=== PATIENT | male | born 1940 | race Caucasian/White ===

== ENCOUNTER 2022-03-15 17:39 | Inpatient (IN) | payer MEDICARE ==
[~2022-03-15] VITALS: Ht 152.4 cm; Wt 57.2 kg
[2022-03-15 11:00] VITALS: BP 151/80
--- NOTE | 2022-03-15 18:00 | NUR ---
RECEVED PT 81 YRS MALE FROM REHAB BY CLAUDIA MORA
--- NOTE | 2022-03-15 18:25 | NUR ---
SEEN BY DR. FORTUNE
[2022-03-15] MEDS ORDERED: ASPIRIN 325 MG TABLET PO ONE (18:30)
--- NOTE | 2022-03-15 18:35 | NUR ---
INSERTEDD ANGO CATHETER G 20 ON LT WRIST BLOOD DROW AND SENT TO LAB
[2022-03-15] MEDS ORDERED: ASPIRIN 325 MG TABLET ONE (18:38)
--- NOTE | 2022-03-15 19:03 | NUR ---
MONSTER SIDHU SENT TO LAB
[2022-03-15 19:06] LABS: BASOPHILS % (AUTO) 0.2 % (0.0-2.0); HEMATOCRIT 40 % (39-51); HEMOGLOBIN 12.9 g/dL (13.5-17.5); LYMPHOCYTES # (AUTO) 1.3 K/uL (0.8-4.8); LYMPHOCYTES % (AUTO) 20.8 % (20.0-44.0); MEAN CORPUSCULAR HGB CONC 32 g/dl (31.0-36.0); MEAN CORPUSCULAR VOLUME 92 fL (80-96); MONOCYTES # (AUTO) 0.7 K/uL (0.1-1.30); MONOCYTES % (AUTO) 10.2 % (2.0-12.0); NEUTROPHILS # (AUTO) 4.1 K/uL (1.8-8.9); NEUTROPHILS % (AUTO) 63.8 % (43.0-81.0); PLATELET COUNT (AUTO) 155 K/uL (150-450); WHITE BLOOD COUNT (AUTO) 6.4 K/uL (4.3-11.0)
[2022-03-15 19:24] LABS: ALANINE AMINOTRANSFERASE < 6 U/L (12-78); ALBUMIN 3.5 g/dL (3.4-5.0); ALKALINE PHOSPHATASE 96 U/L (46-116); ASPARTATE AMINOTRANSFERASE 16 U/L (15-37); BILIRUBIN,DIRECT 0.1 mg/dL (0.0-0.2); BILIRUBIN,TOTAL 0.4 mg/dL (0.2-1.0); CALCIUM, SERUM 8.5 mg/dL (8.5-10.1); CARBON DIOXIDE 26 mmol/L (21-32); CHLORIDE 103 mmol/L (98-107); GLUCOSE 100 mg/dL (74-106); POTASSIUM 4.5 mmol/L (3.5-5.1); SODIUM SERUM 136 mmol/L (136-145); TOTAL PROTEIN, SERUM 7.1 g/dL (6.4-8.2); UREA NITROGEN, BLOOD 20 mg/dL (7-18)
--- NOTE | 2022-03-15 19:40 | NUR ---
HAND OFF MARY ANN BOWEN
[2022-03-15] MEDS ORDERED: NITROGLYCERIN 0.4 MG/TAB BOTTLE SL PRN (21:30)
[2022-03-15] MEDS ORDERED: DOCUSATE SODIUM 100 MG CAPSULE PO PRN (21:30)
[2022-03-15] MEDS ORDERED: ACETAMINOPHEN 325 MG TABLET PO PRN (21:30)
[2022-03-15] MEDS ORDERED: ONDANSETRON HCL/PF 4 MG/2 ML VIAL IVP PRN (21:30)
[2022-03-15] MEDS ORDERED: MORPHINE SULFATE INJ 2 MG/ML DISP.SYRIN IV PRN (21:30)
[2022-03-15] MEDS ORDERED: MAG HYDROX/AL HYDROX/SIMETH 30 ML UDC PO PRN (21:30)
--- NOTE | 2022-03-15 22:06 | NUR ---
ROOM 313-2
--- NOTE | 2022-03-15 22:18 | NUR ---
REPORT GIVEN TO 3W RN FOR GERBER
--- NOTE | 2022-03-15 22:56 | NUR ---
PT ADMITTED TO 3W 313 VIA ACLS PROTOCOL.
[2022-03-16 00:36] VITALS: BP 151/80
--- NOTE | 2022-03-16 00:46 | NUR ---
INTERNAL COMBUSTION ENGINEERCRITICAL CARE REGISTERED NURSE NOTE RECEIVED REPORT FROM ER-RN MARY ANN AND PATIENT WAS BROUGHT TO THE UNIT AT AROUND 2300 VIA GURNEY, ACCOMPANIED BY ER STAFF AND DIRECTED TO ROOM 313-2. PATIENT IS ALERT AND ORIENTED X3. AFEBRILE AND NOT IN ANY FORM OF ACUTE DISTRESS. ABLE TO MAKE NEEDS KNOWN. PATIENT WAS ADMITTED D/T C/O CHEST PAIN THAT STARTED THIS MORNING AND DESCRIBES IT SHARP, NON RADIATING PAIN. UPON ASSESSMENT, PATIENT DENIES ANY PAIN OR DISCOMFORT. ORIENTED TO NEW ENVIRONMENT. EXPLAINED ADMISSION PROCESS INCLUDING INITIAL SKIN ASSESSMENT AND AGREED TO IT. PATIENT WAS NOTED WITH REDNESS ON SACRAL AREA. IV ACCESS ON L FOREARM 50G WAS ALSO NOTED. VITALS TAKEN AND FOLLOWS: BP 151/810, P- 75, T- 98.0, O2 SAT ON RA 99%, R-20. BELONGINGS AND VALUABLES PROPERLY DOCUMENTED TOGETHER WITH ASSIGNED CUSTOMER LEADER. KEPT DRY AND COMFORTABLE. SAFETY MEASURES IN PLACE. KEPT BED IN LOCKED AND IN LOW POSITION. SIDE RAILS UP X2. BED ALARM ON. ADVISED TO USE THE CALL LIGHT WHEN IN NEED OF ASSISTANCE.
[2022-03-16 04:00] VITALS: BP 139/77
--- NOTE | 2022-03-16 06:30 | NUR ---
RRT CLOSING NOTE PATIENT IN BED, ASLEEP BUT EASY TO AROUSE AND RESPONSIVE. AFEBRILE AND NOT IN ANY FORM OF ACUTE DISTRESS. ABLE TO MAKE NEEDS KNOWN. BREATHING EVEN AND NON LABORED. NO C/O CHEST PAIN OR DISCOMFORT THROUGHOUT THE SHIFT. WITH IV ACCESS ON L FOREARM 20- SL. ON TELE MONITORING WITH CURRENT READING OF SINUS NURIA 57. KEPT DRY AND COMFORTABLE. SAFETY MEASURES IN PLACE. KEPT BED IN LOCKED AND IN LOW POSITION. SIDE RAILS UP X2. BED ALARM ON. ADVISED TO USE THE CALL LIGHT WHEN IN NEED OF ASSISTANCE. ALL NURSING NEEDS ATTENDED. ENDORSED TO INCOMING SHIFT FOR CONTINUITY OF CARE.
[2022-03-16 06:58] LABS: BASOPHILS % (AUTO) 0.4 % (0.0-2.0); HEMATOCRIT 38 % (39-51); HEMOGLOBIN 12.5 g/dL (13.5-17.5); LYMPHOCYTES # (AUTO) 1.4 K/uL (0.8-4.8); LYMPHOCYTES % (AUTO) 22.6 % (20.0-44.0); MEAN CORPUSCULAR HGB CONC 33 g/dl (31.0-36.0); MEAN CORPUSCULAR VOLUME 90 fL (80-96); MONOCYTES # (AUTO) 0.8 K/uL (0.1-1.30); MONOCYTES % (AUTO) 12.7 % (2.0-12.0); NEUTROPHILS # (AUTO) 3.7 K/uL (1.8-8.9); NEUTROPHILS % (AUTO) 58.3 % (43.0-81.0); PLATELET COUNT (AUTO) 162 K/uL (150-450); RED BLOOD CELL COUNT(AUTO) 4.24 MIL/uL (4.5-6.0); WHITE BLOOD COUNT (AUTO) 6.3 K/uL (4.3-11.0)
[2022-03-16 07:20] LABS: ALANINE AMINOTRANSFERASE 12 U/L (12-78); ALBUMIN 3.2 g/dL (3.4-5.0); ALKALINE PHOSPHATASE 85 U/L (46-116); ASPARTATE AMINOTRANSFERASE 14 U/L (15-37); BILIRUBIN,TOTAL 0.5 mg/dL (0.2-1.0); CALCIUM, SERUM 8.1 mg/dL (8.5-10.1); CARBON DIOXIDE 26 mmol/L (21-32); CHLORIDE 106 mmol/L (98-107); CREATININE 0.9 mg/dL (0.6-1.3); GLUCOSE 86 mg/dL (74-106); MAGNESIUM 2.1 mg/dL (1.8-2.4); PHOSPHORUS 3.1 mg/dL (2.5-4.9); POTASSIUM 3.9 mmol/L (3.5-5.1); SODIUM SERUM 140 mmol/L (136-145); TOTAL PROTEIN, SERUM 6.5 g/dL (6.4-8.2); UREA NITROGEN, BLOOD 16 mg/dL (7-18)
--- NOTE | 2022-03-16 07:28 | NUR ---
RADIAL ARM SAW OPERATOR OPENING NOTES RECEIVED PATIENT AWAKE IN BED IN NO ACUTE SIGNS OF DISTRESS. A/O X 3, ABLE TO MAKE NEEDS KNOWN, DENIES PAIN OR ANY DISCOMFORTS AT THIS TIME. ON ROOM AIR, TOLERATING WELL, BREATHING EVEN AND UNLABORED. TELE- MONITOR CURRENTLY SHOWS NSR, HR 61, NO C/O CARDIAC DISTRESS NOTED. IV ACCESS ON LFA G#20 INTACT, PATENT AND SL. SAFETY MEASURES IN PLACE: CALL LIGHT WITHIN REACH, SIDE RAILS UP X 2, BED LOCKED IN LOWEST POSITION, BED ALARM ON. WILL CONTINUE TO MONITOR PATIENT ACCORDINGLY.
[2022-03-16 07:42] LABS: THYROID STIMULATING HORMONE 2.904 uIU/mL (0.358-3.74)
[2022-03-16 08:00] VITALS: BP 140/67
[2022-03-16] MEDS ORDERED: TAMS-12 PO (08:09)
[2022-03-16] MEDS ORDERED: CARB1TAB21 PO (08:09)
[2022-03-16] MEDS ORDERED: FINA5TAB11 PO (08:09)
[2022-03-16] MEDS: ASPIRIN 81 MG TAB.CHEW PO SCH (09:06)
[2022-03-16] MEDS: ENOXAPARIN SODIUM 60 MG/0.6 ML DISP.SYRIN SQ SCH (09:07)
[2022-03-16] MEDS: FINASTERIDE (5 MG) 5 MG TABLET PO SCH (09:10)
--- NOTE | 2022-03-16 10:20 | NUR ---
[facility] NOTES: [id number]. PT ALERT/COHERENT. NO OBVIOUS DISTRESS NOTED. AGUILA PROCEDURE WELL. 1050 BACK TO ROOM VIA ACLS PROTOCOL. REPORT GIVEN TO JESSI DESAI/
[2022-03-16] MEDS ORDERED: METOPROLOL TARTRATE INJ 5 MG/5 ML AMPUL ONE (10:21)
[2022-03-16] MEDS: METOPROLOL TARTRATE INJ 5 MG/5 ML AMPUL IVP PRN ×2 (10:25→10:30)
[2022-03-16] MEDS ORDERED: IOHEXOL-350 100 ML VIAL IV ONE (10:34)
[2022-03-16] MEDS ORDERED: IV NS 0.9% 250 ML IV ONE (10:34)
[2022-03-16] MEDS ORDERED: NITROGLYCERIN 0.4 MG/TAB BOTTLE ONE (10:34)
[2022-03-16] MEDS ORDERED: CT SWABBABLE VALVE TRANS SET 1 EA INFUS.SET MC ONE (10:34)
[2022-03-16] MEDS ORDERED: IV NS 0.9% 500 ML IV PRN ×2 (11:00)
[2022-03-16 12:00] VITALS: BP 116/50
[2022-03-16] MEDS: CARBIDOPA/LEVODOPA 25/100 MG 1 UDTAB PO SCH (12:35)
--- NOTE | 2022-03-16 14:25 | NUR ---
RN NOTES INFORMED DR MURPHY OF [facility] RESULTS.
[2022-03-16 15:16] LABS: CHOLESTEROL 172 mg/dL (<200); HDL CHOLESTEROL 66 mg/dL (40-60); LDL 101 mg/dL (0-99); TRIGLYCERIDES 31 mg/dL (30-150)
[2022-03-16] MEDS: ATORVASTATIN 40 MG TABLET PO SCH (15:23)
--- NOTE | 2022-03-16 15:33 | NUR ---
RN NOTES PATIENT C/O DRY COUGH. DR GOULD MADE AWARE WITH ORDER TO GIVE GUAIFENESIN 300MG /15 ML PO EVERY 6HRS PRN.
[2022-03-16] MEDS: GUAIFENESIN 300 MG/15 ML UDC PO PRN (18:29)
--- NOTE | 2022-03-16 18:41 | NUR ---
CIRCULAR CLERK CLOSING NOTE PATIENT IN BED AWAKE, A/0X3, ABLE TO MAKE NEEDS KNOWN. BREATHING EVEN AND NON LABORED. NO C/O CHEST PAIN OR DISCOMFORT AT THIS TIME. WITH IV ACCESS ON L FOREARM 20- SL, AND R AC #22G. ON TELE MONITORING WITH CURRENT READING OF SINUS RHYTHYM 85 WITH PVC'S. KEPT DRY AND COMFORTABLE. SAFETY MEASURES IN PLACE. BED IN LOCKED AND LOWEST POSITION. SIDE RAILS UP X2. BED ALARM ON. ADVISED TO USE THE CALL LIGHT WHEN IN NEED OF ASSISTANCE. ALL NEEDS MET AT THIS TIME. WILL ENDORSE GERBER TO FIELD MECHANIC NURSE.
--- NOTE | 2022-03-16 19:40 | NUR ---
WOOD HANDLER OPENING NOTE RECEIVED PATIENT AWAKE AMBULATING IN ROOM. PT IS PLACED BED TO BED. NO ACUTE SIGNS OF DISTRESS. PT A/O X 3, ABLE TO MAKE NEEDS KNOWN. DENIES PAIN OR ANY DISCOMFORTS AT THIS TIME. ON ROOM AIR, TOLERATING RA WELL, WITH BREATHING EVEN AND UNLABORED. TELE- MONITOR CURRENTLY SHOWS NSR, HR 68, NO C/O CARDIAC DISTRESS. IV ACCESS TO LEFT FA G#20 INTACT, PATENT AND SL. SAFETY MEASURES IN PLACE: CALL LIGHT WITHIN REACH, SIDE RAILS UP X 2, BED LOCKED IN LOWEST POSITION, BED ALARM ON. WILL CONTINUE TO MONITOR PATIENT.
[2022-03-16 20:00] VITALS: BP_SYST 105; BP_SYST 153; BP_DIAS 77; BP_DIAS 79
--- NOTE | 2022-03-16 21:22 | NUR ---
SENIOR STAFF ACCOUNTANT NOTE PT REPORTS PAIN TO RIGHT ARM. [facility]
[2022-03-16] MEDS ORDERED: TAMSULOSIN 0.4 MG CAP.SR.24H PO SCH (22:00)
[2022-03-17] VITALS: BP 156/68
--- NOTE | 2022-03-17 00:16 | NUR ---
PHYSICAL OPTICS TEACHER NOTE PT C/O GENERALIZED PAIN. PAIN MED [facility]ORPHINE GIVEN TO PT.
[2022-03-17 04:00] VITALS: BP 143/63
--- NOTE | 2022-03-17 07:00 | NUR ---
CLOTHESPIN DRIER OPERATOR CLOSING NOTE PATIENT IN BED AWAKE, A/0X3, ABLE TO MAKE NEEDS KNOWN. BREATHING EVEN AND NON LABORED. NO C/O CHEST PAIN OR DISCOMFORT AT THIS TIME. WITH IV ACCESS ON L FOREARM 20- SL, AND R AC #22G. ON TELE MONITORING WITH CURRENT READING OF SINUS RHYTHM. SAFETY MEASURES IN PLACE. BED IN LOCKED AND LOWEST POSITION. SIDE RAILS UP X2. BED ALARM ON. CALL LIGHT WITHIN REACH. WILL ENDORSE TO AM SHIFT NURSE FOR GERBER.
--- NOTE | 2022-03-17 07:15 | NUR ---
IT SUPPORT CONSULTANT OPENING NOTE PATIENT AWAKE IN BED. NO ACUTE SIGNS OF DISTRESS. PT A/O X2-3, ABLE TO MAKE NEEDS KNOWN. DENIES PAIN OR ANY DISCOMFORTS AT THIS TIME. ON ROOM AIR, TOLERATING RA WELL, WITH BREATHING EVEN AND UNLABORED. TELE- MONITOR CURRENTLY SHOWS NSR, HR 74 WITH PVC'S, NO C/O CARDIAC DISTRESS. IV ACCESS TO LEFT FA G#20 INTACT, PATENT AND SL. PULLED OUT RIGHT AC IV, CLEANED AND COVERED WITH BAND AID, NO ACTIVE BLEEDING NOTED. SAFETY MEASURES IN PLACE: CALL LIGHT WITHIN REACH, SIDE RAILS UP X 2, BED LOCKED IN LOWEST POSITION, BED ALARM ON. WILL CONTINUE TO MONITOR PATIENT.
[2022-03-17] MEDS: GUAIFENESIN 300 MG/15 ML UDC PO PRN (08:10)
[2022-03-17] MEDS: CARBIDOPA/LEVODOPA 25/100 MG 1 UDTAB PO SCH (08:10)
[2022-03-17] MEDS: ATORVASTATIN 40 MG TABLET PO SCH (08:11)
[2022-03-17] MEDS: FINASTERIDE (5 MG) 5 MG TABLET PO SCH (08:11)
[2022-03-17] MEDS: ASPIRIN 81 MG TAB.CHEW PO SCH (08:11)
[2022-03-17] MEDS: ENOXAPARIN SODIUM 60 MG/0.6 ML DISP.SYRIN SQ SCH (08:11)
--- NOTE | 2022-03-17 08:28 | NUR ---
WOUND CARE CONSULT: (LATE ENTRY) PT WAS SEEN FOR SKIN ASSESSMENT ON 03/16 AND NOTED TO HAVE BLANCHABLE REDNESS TO BUTTOCKS, PRESENT ON ADMISSION. DISCUSSED SKIN PROTECTION WITH NURSING STAFF. MD IN AGREEMENT WITH PLAN OF CARE.
[2022-03-17] MEDS ORDERED: Z GUARD REMEDY 4 OZ OINT TP PRN (08:30)
[2022-03-17] MEDS ORDERED: MENTHOL/CETYLPYRD (CEPACOL) 1 LOZ LOZENGE PO PRN (10:30)
--- NOTE | 2022-03-17 13:47 | NUR ---
RN DISCHARGED NOTES PT DISCHARGED TO THE [facility] IN STABLE CONDITION. A/O X3. ABLE TO MAKE NEEDS KNOWN. ALL BELONGINGS ACCOUNTED FOR AND PT'S SIGNED BELONGINGS LIST. PHOTOS OF SACRAL REDNESS TAKEN AND FILED ON HIS CHART. IV ACCESS ON LFA G#20 REMOVED WITH NO ACTIVE BLEEDING NOTED, DRY PRESSURE DRESSING APPLIED AT SITE. CALLED AND REPORT GIVEN TO RECEIVING NURSE OF THE [facility]. PT LEFT UNIT @ 1335 VIA WHEELCHAIR ACCOMPANIED BY ADWOA SANCHEZ AND JESSI DESAI. JESSI DESAI GAVE REPORT AND HANDED EXIT FOLDER TO [employer], THE ENROBING MACHINE FEEDER OF TRANSPORTATION FROM [facility]. PT'S NIECE INFORMED OF THE D/C BACK TO [facility]. MD AND CHARGE NURSE AWARE OF DISCHARGE.
== END 2022-03-17 13:25 | DRG 206 ==
LOC: ER 17:54 → TELE 21:54
PROVIDERS: ADMIT Registered Nurse; ATTEND Nurse Practitioner Acute Care
DX: M94.0 Chondrocostal junction syndrome [Tietze] (principal); G20 Parkinson's disease; I25.10 Atherosclerotic heart disease of native coronary artery without angina pectoris; N40.0 Benign prostatic hyperplasia without lower urinary tract symptoms; Z20.822 Contact with and (suspected) exposure to COVID-19
CPT/HCPCS: 36415; 71045-TC; 75574; 80048-TC; 80053-TC; 80061-TC; 80076-TC; 83735-TC; 83880; 84100-TC; 84443-TC; 84484-TC; 85025-TC; 87081-TC; 93307-TC; C9803; G0378; J1650; J3490; J7050; Q9967

== ENCOUNTER → 2022-05-30 | Emergency (ER) | payer MEDICARE, OTHER ==
[~2022-05-30] VITALS: Ht 154.9 cm; Wt 65.8 kg
[~2022-05-30] MED LIST: CARB1TAB21 PO; FINA5TAB11 PO; TAMS-12 PO
--- NOTE | 2022-05-30 17:21 | NUR ---
[id number] FROM THE [facility] FOR RIGHT WRIST PAIN X 4 DAYS S/P "SLAMMED ON DOOR".
[2022-05-30 17:30] VITALS: BP 141/81
--- NOTE | 2022-05-30 18:00 | NUR ---
CALLED [facility] AND SET UP S TRANSPORT ETA [phone]
== END | disposition home or self-care (01) ==
LOC: ER 16:49
DX: S52.501A Unspecified fracture of the lower end of right radius, initial encounter for closed fracture (principal); G20 Parkinson's disease; Z79.899 Other long term (current) drug therapy; W17.89XA Other fall from one level to another, initial encounter; Y93.89 Activity, other specified; Y92.89 Other specified places as the place of occurrence of the external cause; Y99.8 Other external cause status

== ENCOUNTER 2022-06-10 10:45 | Emergency (ER) | payer MEDICARE, OTHER ==
[~2022-06-10] VITALS: Ht 172.7 cm; Wt 64.9 kg
--- NOTE | 2022-06-10 11:28 | NUR ---
BIB PRIVATE AMBULANCE FROM [facility] FOR RIGHT ARM PAIN S/P CAST PLACEMENT "4 DAYS AGO" ACCORDING TO THE PT. UNKNOWN TO WHERE IT WAS PLACED. REDNESS AROUND THE KNUCKLES NOTED. PT STATES "IT ONLY HURTS WHEN I MOVE IT". PT PLACED IN BED AND CONNECTED TO MONITOR. VSS. BREATHING EVEN AND UNLABORED. VSS. AWAITING MD ORDERS.
--- NOTE | 2022-06-10 11:36 | NUR ---
AT BEDSIDE FOR EVAL.
[2022-06-10] MEDS ORDERED: ERGO500093 PO (13:06)
[2022-06-10] MEDS ORDERED: TRAM50TA2 PO (13:06)
[2022-06-10] MEDS ORDERED: DOCU-141 PO (13:06)
[2022-06-10] MEDS ORDERED: CYAN-51 PO (13:06)
[2022-06-10] MEDS ORDERED: NITR0.4T48 SL (13:06)
[2022-06-10] MEDS ORDERED: ACET-868 PO (13:06)
[2022-06-10] MEDS ORDERED: FERR325T23 PO (13:06)
[2022-06-10] MEDS ORDERED: MELA5TAB PO (13:06)
[2022-06-10] MEDS ORDERED: ATOR40TA PO (13:06)
[2022-06-10] MEDS ORDERED: CEPHALEXIN MONOHYDRATE 500 MG CAPSULE PO ONE ×2 (14:00→14:03)
--- NOTE | 2022-06-10 14:40 | NUR ---
[facility] ETA [phone]
[2022-06-10] MEDS ORDERED: CEPH500C2 PO (14:45)
--- NOTE | 2022-06-10 15:50 | NUR ---
[facility] AT BEDSIDE FOR TRANSPORT. REPORT GIVEN.
--- NOTE | 2022-06-10 15:54 | NUR ---
REPORT GIVEN TO [facility] CHERELLE CLARK. SHE ACKNOWLEDGED ON WAITING TO RECIEVE THE PATIENT FOR CONTINUITY OF CARE.
[2022-06-10 16:57] VITALS: BP 115/68
== END 2022-06-10 16:57 ==
LOC: ER 11:05
DX: S52.531D Colles' fracture of right radius, subsequent encounter for closed fracture with routine healing (principal); L03.113 Cellulitis of right upper limb; G20 Parkinson's disease; Z79.899 Other long term (current) drug therapy; X58.XXXD Exposure to other specified factors, subsequent encounter
CPT/HCPCS: 73110; 73130-TC

== ENCOUNTER 2023-10-12 20:25 | Emergency (ER) | payer MEDICARE, OTHER ==
[~2023-10-12] VITALS: Ht 170.2 cm; Wt 76.2 kg
[~2023-10-12 20:25] MED LIST changes: +ACET-868 PO; +ATOR40TA PO; +CEPH500C2 PO; +CYAN-51 PO; +DOCU-141 PO; +ERGO500093 PO; +FERR325T23 PO; +MELA5TAB PO; +NITR0.4T48 SL; +TRAM50TA2 PO
[2023-10-12 21:13] LABS: BASOPHILS % (AUTO) 0.5 % (0.0-2.0); EOSINOPHILS # (AUTO) 0.6 K/uL (0.0-0.7); EOSINOPHILS % (AUTO) 6.6 % (0.0-6.0); HEMATOCRIT 37 % (39-51); HEMOGLOBIN 12.5 g/dL (13.5-17.5); LYMPHOCYTES # (AUTO) 1.5 K/uL (0.8-4.8); LYMPHOCYTES % (AUTO) 17.7 % (20.0-44.0); MEAN CORPUSCULAR HEMOGLOBIN 31 PG (26.0-33.0); MEAN CORPUSCULAR HGB CONC 34 g/dl (31.0-36.0); MEAN CORPUSCULAR VOLUME 91 fL (80-96); MONOCYTES # (AUTO) 0.8 K/uL (0.1-1.30); MONOCYTES % (AUTO) 9.4 % (2.0-12.0); NEUTROPHILS # (AUTO) 5.5 K/uL (1.8-8.9); NEUTROPHILS % (AUTO) 65.8 % (43.0-81.0); PLATELET COUNT (AUTO) 98 K/uL (150-450); RED BLOOD CELL COUNT(AUTO) 4.06 MIL/uL (4.5-6.0); RED CELL DISTRIBUTION WIDTH 13.6 % (11.5-15.0); WHITE BLOOD COUNT (AUTO) 8.4 K/uL (4.3-11.0)
[2023-10-12 21:21] LABS: CALCIUM, SERUM 8.5 mg/dL (8.5-10.1); CARBON DIOXIDE 27 mmol/L (21-32); CHLORIDE 98 mmol/L (98-107); CREATININE 0.8 mg/dL (0.6-1.3); GLUCOSE 146 mg/dL (74-106); POTASSIUM 4.7 mmol/L (3.5-5.1); SODIUM SERUM 133 mmol/L (136-145); UREA NITROGEN, BLOOD 9 mg/dL (7-18)
[2023-10-12 21:29] LABS: LACTIC ACID 1.3 mmol/L (0.4-2.0)
[2023-10-12] MEDS ORDERED: ALBUTEROL FS 2.5 MG/0.5 ML VIAL.NEB ONE (21:29)
[2023-10-12] MEDS: methylPREDNISolone SOD SUCC 125 MG/2ML VIAL IV ONE (21:30)
[2023-10-12 21:33] VITALS: O2SAT 96
[2023-10-12 21:34] LABS: ALANINE AMINOTRANSFERASE 18 U/L (12-78); ALBUMIN 3.1 g/dL (3.4-5.0); ALKALINE PHOSPHATASE 127 U/L (46-116); ASPARTATE AMINOTRANSFERASE 18 U/L (15-37); BILIRUBIN,DIRECT 0.1 mg/dL (0.0-0.2); BILIRUBIN,TOTAL 0.3 mg/dL (0.2-1.0); NT-PRO BNP 479 pg/mL (0-125); TOTAL PROTEIN, SERUM 6.9 g/dL (6.4-8.2)
[2023-10-12] MEDS ORDERED: methylPREDNISolone SOD SUCC 125 MG/2ML VIAL ONE (21:35)
[2023-10-12] MEDS: ALBUTEROL FS 2.5 MG/0.5 ML VIAL.NEB NEB ONE (21:36)
[2023-10-12 21:43] VITALS: O2SAT 100
[2023-10-12 21:50] LABS: ANISOCYTOSIS 1+; EOSINOPHILS % (MANUAL) 5 % (0-4); LYMPHOCYTES % (MANUAL) 20 % (16-48); MONOCYTES % (MANUAL) 11 % (0-11.0); NEUTROPHILS % (MANUAL) 64 (42-76); PLATELET ESTIMATE DECREASED
[2023-10-12 21:57] LABS: APPEARANCE,URINE CLEAR (CLEAR); BILIRUBIN,URINE NEGATIVE (NEGATIVE); BLOOD, URINE NEGATIVE Ery/uL (NEGATIVE); COLOR,URINE YELLOW (YELLOW); KETONES,URINE NEGATIVE (NEGATIVE); LEUKOCYTE ESTERASE ,URINE NEGATIVE (NEGATIVE); NITRITE, URINE NEGATIVE (NEGATIVE); PROTEIN,URINE NEGATIVE (NEGATIVE); UGLUCOSE NEGATIVE (NEGATIVE); UROBILINOGEN,URINE 0.2 EU/dL (0.2)
[2023-10-13 01:15] VITALS: O2SAT 94
[2023-10-13] MEDS ORDERED: ALBUTEROL FS 2.5 MG/0.5 ML VIAL.NEB ONE (01:15)
[2023-10-13] MEDS: ALBUTEROL FS 2.5 MG/0.5 ML VIAL.NEB NEB ONE (01:18)
[2023-10-13 01:23] VITALS: O2SAT 99
[2023-10-13 01:38] VITALS: BP 144/78; TEMP 98.4; O2SAT 99
== END 2023-10-13 01:40 ==
LOC: ER 20:32
DX: J98.01 Acute bronchospasm (principal); G20.A1 Parkinson's disease without dyskinesia, without mention of fluctuations; Z20.822 Contact with and (suspected) exposure to COVID-19
CPT/HCPCS: 36415; 71045-TC; 80048-TC; 80076-TC; 83605-TC; 83880; 84484-TC; 85025-TC; 87040-TC; J2919

== ENCOUNTER 2023-12-14 05:53 | Emergency (ER) | payer MEDICARE, OTHER ==
[~2023-12-14] VITALS: Ht 170.2 cm; Wt 81.2 kg
[2023-12-14 06:48] LABS: BASOPHILS % (AUTO) 0.6 % (0.0-2.0); EOSINOPHILS # (AUTO) 0.3 K/uL (0.0-0.7); EOSINOPHILS % (AUTO) 4.8 % (0.0-6.0); HEMATOCRIT 38 % (39-51); HEMOGLOBIN 12.7 g/dL (13.5-17.5); LYMPHOCYTES # (AUTO) 1.3 K/uL (0.8-4.8); LYMPHOCYTES % (AUTO) 22.3 % (20.0-44.0); MEAN CORPUSCULAR HEMOGLOBIN 30 PG (26.0-33.0); MEAN CORPUSCULAR HGB CONC 33 g/dl (31.0-36.0); MEAN CORPUSCULAR VOLUME 91 fL (80-96); MONOCYTES # (AUTO) 0.6 K/uL (0.1-1.30); MONOCYTES % (AUTO) 10.9 % (2.0-12.0); NEUTROPHILS # (AUTO) 3.5 K/uL (1.8-8.9); NEUTROPHILS % (AUTO) 61.4 % (43.0-81.0); PLATELET COUNT (AUTO) 185 K/uL (150-450); RED BLOOD CELL COUNT(AUTO) 4.23 MIL/uL (4.5-6.0); RED CELL DISTRIBUTION WIDTH 13.8 % (11.5-15.0); WHITE BLOOD COUNT (AUTO) 5.7 K/uL (4.3-11.0)
[2023-12-14 06:56] LABS: CALCIUM, SERUM 8.6 mg/dL (8.5-10.1); CARBON DIOXIDE 29 mmol/L (21-32); CHLORIDE 102 mmol/L (98-107); CREATININE 0.7 mg/dL (0.6-1.3); GLUCOSE 98 mg/dL (74-106); SODIUM SERUM 136 mmol/L (136-145); UREA NITROGEN, BLOOD 7 mg/dL (7-18)
[2023-12-14 11:25] VITALS: BP 140/78; TEMP 98.8; O2SAT 98
== END 2023-12-14 11:20 | disposition home or self-care (01) ==
LOC: ER 06:06
DX: R07.9 Chest pain, unspecified (principal); R06.02 Shortness of breath; F41.9 Anxiety disorder, unspecified; F84.5 Asperger's syndrome; G20.A1 Parkinson's disease without dyskinesia, without mention of fluctuations; Z85.46 Personal history of malignant neoplasm of prostate
CPT/HCPCS: 36415; 71045-TC; 80048-TC; 84484-TC; 85025-TC